=== PATIENT | male | born 1975 | race Caucasian/White ===

== ENCOUNTER → 2020-11-02 11:24 | Outpatient (BNVA) | payer SELFPAY | PROVIDERS: Family Provider Counselor Professional; Visit Provider Family Medicine | DX: I10 Essential (primary) hypertension (principal); Z13.1 Encounter for screening for diabetes mellitus; Z13.220 Encounter for screening for lipoid disorders; Z13.6 Encounter for screening for cardiovascular disorders; M54.5 Low back pain; G89.29 Other chronic pain; Z72.0 Tobacco use; Z76.89 Persons encountering health services in other specified circumstances | CPT/HCPCS: 80053; 80061 ==

== ENCOUNTER 2020-12-14 13:23 | Emergency (ER) | payer SELFPAY ==
[2020-12-14 13:56] VITALS: BP 189/92; PULSE 82; RESP 18; TEMP 36.8; O2SAT 98; BMI 39.9
--- NOTE | 2020-12-14 14:10 | ED_ITS ---
HPI - Extremity Problem General: Chief complaint: Extremity Problem,Nontraumatic Stated complaint: R ARM PAIN Time Seen by Provider: 12/14/20 13:56 History of Present Illness: HPI Narrative: Patient is a 45-year-old male comes to the ED with right shoulder pain. Patient says his pain is acute on chronic. He has been having on and off right shoulder pain for the past year. He says approximately 5 days ago his right shoulder pain flared up and got worse. Denies any known injury or trauma. Patient does work at a [employer] and does a lot of manual labor and lifting. He rates his pain a 9 out of 10. He says that in the past he did have to get injections in his right shoulder to help with pain. Associated symptoms: Deny chest pain, fever(s) or rash Review of Systems Const: Denies: fever(s), chills or fatigue Eyes: Denies: change in vision or eye discomfort ENMT: Denies: throat pain, odynophagia, nasal discharge or nasal congestion Card: Denies: chest pain, palpitations, edema, swelling of feet/ankles, dyspnea on exertion or orthopnea Resp: Denies: dyspnea, productive cough or non-productive cough GI: Denies: abdominal pain, nausea, vomiting, diarrhea, constipation or hematochezia : Denies: flank pain, difficulty urinating, dysuria or hematuria Musc: Reports: extremity pain (Right shoulder) and joint pain (Right shoulder); Denies: neck pain, back pain or extremity swelling Skin/Breast: Denies: rash or new lesions Neuro: Denies: headache(s), numbness in extremities or weakness in extremities [facility] ED PFSH: Medical History Hx of carpal tunnel syndrome bilateral Surgical History H/O eye surgery Family History Family/Other Diabetes CAD (coronary artery disease) Social History Smoking and tobacco status: current every day smoker cigarettes Packs smoked per day: 2 Alcohol intake: current Alcohol intake frequency: 0-2 Drinks per Day History of recent travel: No Physical Exam Const: COMMON NORMALS: no acute distress, patient oriented x3, healthy appearing and alert GENERAL APPEARANCE: cooperative and comfortable HENMT: COMMON NORMALS: normocephalic HEAD & SCALP: normocephalic MOUTH: Normal oral and palatal mucosa present THROAT: posterior oropharynx normal and uvula midline Neck/C-Spine: COMMON NORMALS: supple GENERAL: Yes normal visual inspection Resp: COMMON NORMALS: normal respiratory effort, No retractions, No use of ac cessory muscles and clear to auscultation bilaterally AUSCULTATION: clear to auscultation bilaterally Cardio: COMMON NORMALS: regular rate, regular rhythm, S1 normal heart sound present, S2 normal heart sound present, No gallops present (Cardio), No clicks present (Cardio), No murmurs present (Cardio) and Peripheral pulses 2+ throughout RATE: regular rate RHYTHM: regular rhythm HEART SOUNDS: S1 normal heart sound present and S2 normal heart sound present PERIPHERAL PULSES: Peripheral pulses 2+ throughout GI: COMMON NORMALS: Normal to inspection, nondistended, normoactive bowel sounds present, Soft to palpation, non-tender and no masses PALPATION: Yes Soft to palpation : COMMON NORMALS: Yes no CVA tenderness BLADDER/KIDNEY EXAM: Yes no CVA tenderness Back/Pelvis: COMMON NORMALS: no CVA tenderness Extremity: GENERAL: Yes normal exam except as noted RIGHT UPPER EXTREMITY: Yes shoulder joint (Patient has tenderness around AC joint right shoulder.) Right shoulder: Yes Right shoulder joint inspection exam (No visible deformity, swelling or ecchymosis seen.), Yes palpation, Yes Right shoulder joint ROM exam (Limited due to pain.) and Yes Right shoulder joint neurovascular exam (Intact.) Neuro: COMMON NORMALS: patient oriented x3 and moves all extremities SENSORIUM/ORIENTATION: Yes alert Skin: GENERAL SKIN EXAM: dry skin Course Vital Signs: Vital signs: Vital Signs Temperature 98.2 F 12/14/20 13:56 Pulse Rate 82 12/14/20 13:56 Respiratory Rate 18 12/14/20 13:56 Blood Pressure 189/92 12/14/20 13:56 Pulse Oximetry 98 12/14/20 13:56 MDM - Extremity (Nontraumatic) MDM Narrative: Medical decision making narrative: Patient is a 45-year-old male comes to the ED with acute on chronic right shoulder pain. Denies any recent injury or trauma to cause right shoulder pain. Patient does work doing a lot of manual labor and lifting and thinks that aggravated his symptoms. Exam is benign and patient is neurovascular tact in right arm. X-ray of right shoulder showed no acute fractures or findings. Patient was given IM Toradol here in the ED. Patient diagnosed with pain right shoulder discharged home with a shoulder sling to help with symptoms. He is also discharged home with a prescription for Celebrex and cyclobenzaprine. Return to ED precautions given. Follow-up with PCP in 7 to 10 days reevaluation. Patient understood and agreed with plan. Imaging Data^: Xray Ortho: Attestation: I personally reviewed and interpreted this imaging study as follows: Radiologist's impression: [address] [place] [address] XRay Report Signed Patient: Vasile Aguirre Unit #: [id number] : 1975 Age/Sex: 45 / M ADM Date: 12/14/20 Loc: ER Room/Bed: Attending Dr: Ordering Provider/Ordering MD: Fredis Huang Date of Service: 12/14/20 Procedure(s): XR shoulder RT min 2V* 15263 Accession Number(s): [id number] Report Number: [id number] PROCEDURE INFORMATION: Exam: XR Right Shoulder Exam date and time: 12/14/2020 2:16 PM Age: 45 years old Clinical indication: Right; Patient HX: History--pt is experiencing RT shoulder pain that radiates to the RT elbow . PT states his shoulder has hurt for at least a year. PT stated he had cortisone shots a few years back in the same RT shoulder. No known injury TECHNIQUE: Imaging protocol: XR Right shoulder. Views: 2 or more views. COMPARISON: No relevant prior studies available. FINDINGS: Bones/joints: Normal. Soft tissues: Normal. XR/XR shoulder RT min 2V* [id number] IMPRESSION: No acute findings. Radiation Dose CTDIVOL = (mGy): DLP = (mGy-cm) Dictated By: Bar Cosme MD Signed By: Bar oCsme MD Signed Date/Time: 12/14/20 1454 DD/ 1416 Discharge Plan Discharge Patient Disposition: Home Clinical Impression: Pain in right shoulder Qualifiers: Chronicity: unspecified Qualified Code(s): M25.511 - Pain in right shoulder Condition: Stable Prescriptions: New cyclobenzaprine 10 mg tablet 10 mg PO BID PRN (Reason: muscle spasm) Qty: 20 RF: 0 Celebrex 100 mg capsule 100 mg PO BID PRN (Reason: pain) Qty: 20 RF: 0 No Action lisinopril-hydrochlorothiazide 20-25 mg tablet 1 tab PO DAILY 30 Days Qty: 30 RF: 2 meloxicam 15 mg tablet 15 mg PO DAILY 30 Days Qty: 30 RF: 2 Discharge Orders: Discharge ED (Routine); Ordered 12/14/20 Ordered By: Fredis Huang Referrals: Lo Chahal MD [Primary Care Provider] - Discharge Diet: Regular Discharge Activity: Resume usual activity Patient Instructions: Shoulder Pain (ED) Activity Restrictions/Additional Instructions: Follow-up with medical provider as directed in 7 to 10 days reevaluation. Wear shoulder sling and allow your arm to rest for couple days. Remember to he remove your arm from sling multiple times throughout the day and do some range of motion exercises to prevent shoulder freeze. Apply cold pack on right shoulder to help with symptoms as well. Take medications as prescribed. I am sending you home with cyclobenzaprine which is a muscle relaxer and can cause some drowsiness so take at night before going to bed. Celebrex and meloxicam gave him or similar pain medication, so choose taking the Celebrex or meloxicam for pain but do not take both daily. Return to the ER or your medical provider if condition worsens. Please read and understand discharge instructions. Thank you for choosing [facility] for your healthcare needs today. Please realize this is an emergency room and that we are providing you with a medical screening exam and this may not be complete and all inclusive of all the testing and or work up that you may need to determine your ailment or severity of your illness. It is very important that you follow up as instructed or that you return to the Emergency Department should you have concerns or if your condition changes or worsens in any way. Coding Level of Care Code ED Infection Prevention Specialist for [facility] Exam Comprehensive
--- NOTE | 2020-12-14 14:16 | XRR_ITS ---
PROCEDURE INFORMATION: Exam: XR Right Shoulder Exam date and time: 12/14/2020 2:16 PM Age: 45 years old Clinical indication: Right; Patient HX: History--pt is experiencing RT shoulder pain that radiates to the RT elbow . PT states his shoulder has hurt for at least a year. PT stated he had cortisone shots a few years back in the same RT shoulder. No known injury TECHNIQUE: Imaging protocol: XR Right shoulder. Views: 2 or more views. COMPARISON: No relevant prior studies available. FINDINGS: Bones/joints: Normal. Soft tissues: Normal. XR/XR shoulder RT min 2V* [id number] IMPRESSION: No acute findings. Radiation Dose CTDIVOL = (mGy): DLP = (mGy-cm)
[2020-12-14] MEDS: ketorolac 60 mg/2 mL INJ IM (14:44)
== END 2020-12-14 15:18 | disposition home or self-care (01) ==
PROVIDERS: Emergency Provider Physician Assistant; PCP Family Medicine
DX: M25.511 Pain in right shoulder (principal)
CPT/HCPCS: 73030; 96372; 99283; J1885